=== PATIENT | female | born 1985 | race Hispanic/Latino ===

== ENCOUNTER 2024-07-15 12:41 | Emergency (ER) | payer OTHER ==
[~2024-07-15] VITALS: Ht 157.5 cm; Wt 95.3 kg
[2024-07-15 12:44] VITALS: TEMP 98.6
[2024-07-15 13:07] LABS: BASOPHILS # (AUTO) 0.1 (0.0-0.1); BASOPHILS % 0.6 % (0.0-1.0); EOSINOPHILS # (AUTO) 0.2 (0.0-0.4); EOSINOPHILS % 1.9 % (0.0-6.0); HEMATOCRIT 40.4 % (34.2-44.1); HEMOGLOBIN 12.7 g/dL (12.0-16.0); LYMPHOCYTES # (AUTO) 2.9 (1.0-3.2); LYMPHOCYTES % 28.7 % (18.0-39.1); MEAN CORPUSCULAR HGB CONC 31.4 g/dL (31-35); MONOCYTES # (AUTO) 0.7 (0.2-0.8); MONOCYTES % 6.8 % (4.4-11.3); NEUTROPHILS # (AUTO) 6.3 (2.1-6.9); NEUTROPHILS % 61.6 % (38.7-80.0); PLATELET COUNT 405 x10e3/uL (140-360); RED CELL DISTRIBUTION WIDTH 12.6 % (11.7-14.4); WHITE BLOOD COUNT 10.26 x10e3/uL (4.8-10.8)
[2024-07-15 13:24] LABS: INR 1.14; PROTHROMBIN TIME 15.3 seconds (11.9-14.5)
[2024-07-15] MEDS ORDERED: IOPAMIDOL 370 MG/ML 100 ML INFUS..BTL INJ ONE (13:24)
[2024-07-15] MEDS ORDERED: SODIUM CHLORIDE 0.9% 100 ML ONE (13:24)
[2024-07-15 13:25] LABS: PARTIAL THROMBOPLASTIN TIME 28.1 seconds (23.8-35.5)
[2024-07-15 13:35] LABS: ALBUMIN 3.9 g/dL (3.5-5.0); ALBUMIN/GLOBULIN RATIO 0.9 (0.8-2.0); ANION GAP 13.9 mmol/L (8-16); BILIRUBIN,TOTAL 0.2 mg/dL (0.2-1.2); CALCIUM 9.1 mg/dL (8.4-10.2); CREATININE, SERUM 0.81 mg/dL (0.57-1.11); POTASSIUM 3.9 mmol/L (3.5-5.1); TOTAL PROTEIN 8.2 g/dL (6.5-8.1)
[2024-07-15 13:41] LABS: TROPONIN I 0.007 ng/mL (0-0.300)
[2024-07-15 14:33] LABS: BILIRUBIN,URINE NEGATIVE (NEGATIVE); CLARITY,URINE CLEAR (CLEAR); COLOR,URINE YELLOW (YELLOW); GLUCOSE, URINE NEGATIVE (NEGATIVE); KETONES,URINE NEGATIVE (NEGATIVE); LEUKOCYTE ESTERASE ,URINE NEGATIVE (NEGATIVE); NITRITE,URINE NEGATIVE (NEGATIVE); PH,URINE 7 (5 - 7); PROTEIN,URINE DIPSTICK NEGATIVE (NEGATIVE); URINE UROBILINOGEN 0.2 mg/dL (0.2 - 1)
[2024-07-15 14:37] LABS: BACTERIA,URINE FEW /HPF; EPITHELIAL CELLS,URINE FEW /LPF; RBC,URINE 0-5 /HPF (0-5); WBC,URINE (MAN) 0-5 /HPF (0-5)
[2024-07-15 14:41] LABS: FREE THYROXINE INDEX 2.034 (1.4-3.8); T3 UPTAKE 26.87 % (22.5-37.0); THYROID STIMULATING HORMONE 1.234 uIU/mL (0.350-4.940)
[2024-07-15 14:51] LABS: T4 (THYROXINE) 7.57 ug/dL (4.5-10.9)
[2024-07-15] MEDS ORDERED: MECLIZINE HCL25 MG PO (14:59)
[2024-07-15 15:26] VITALS: PULSE 83; RESP 16
[2024-07-15 15:30] VITALS: BP 148/104; PULSE 83; RESP 15; O2SAT 100
== END 2024-07-15 15:26 | disposition home or self-care (01) ==
LOC: ER 12:46
DX: R42 Dizziness and giddiness (principal); H53.8 Other visual disturbances; M54.2 Cervicalgia; I10 Essential (primary) hypertension
CPT/HCPCS: 36415; 70450; 70496; 70498; 71045; 80053; 81001; 82550; 82948; 84436; 84443; 84479; 84484; 84702; 85025; 85610; 85730; 93005; 99284; J7050; Q9967